=== PATIENT | female | born 1965 | race Caucasian/White ===

== ENCOUNTER 2018-12-03 23:54 | Emergency (ER) ==
[2018-12-04 00:02] VITALS: BP 136/97; TEMP 96.8; BMI 29.3
[2018-12-04] MEDS ORDERED: LIDOCAINE HCL 1% SDV SUBCUT STA (00:20)
--- NOTE | 2018-12-04 00:58 | DI ---
EXAM: Left hip two views HISTORY: Fall COMPARISON: None. FINDINGS: There is no acute fracture or dislocation. The hip joint is maintained. The surrounding soft tissues are unremarkable. IMPRESSION: No acute findings.
--- NOTE | 2018-12-04 01:05 | ED.PDOC ---
General ED Provider: Dr. COURTNEY BARON Chief Complaint: Fall Stated Complaint: Patient is a 53 year old female who states she fell on two steps landing on the left hip and hitting the floor with her left upper lip and causing a contusion on the left forearm. Denies any loss of conciousness. Able to bear weight and move left upper extremity. Did not loose her teeth. Time Seen by Physician: 01:03 Mode of Arrival: Walk-In Information Source: Patient Exam Limitations: No limitations Primary Care Provider: RYLAND MAST Nursing and Triage Documentation Reviewed and Agree: Yes Does patient meet sepsis criteria?: No System Inflammatory Response Syndrome: Not Applicable Sepsis Protocol: For patient's 13 years and over: Temp is 96.8 and below OR 101 and greater Pulse >90 BPM Resp >20/minute Acutely Altered Mental Status Are patient's symptoms suggestive of a new infection, such as: -Pneumonia -Skin, Soft Tissue -Endocarditis -UTI -Bone, Joint Infection -Implantable Device -Acute Abdominal Infection -Wound Infection -Meningitis -Blood Stream Catheter Infection -Unknown Review of Systems - Review Of Systems Constitutional: Reports: No symptoms Eyes: Reports: No symptoms Ears, Nose, Mouth, Throat: Reports: Mouth pain (Left upper lip laceration ) Respiratory: Reports: No symptoms Cardiac: Reports: No symptoms GI: Reports: No symptoms : Reports: No symptoms Musculoskeletal: Reports: Joint pain Skin: Reports: Bruising, Other (laceration ) Neurological: Reports: Anxiety Endocrine: Reports: No symptoms Hematologic/Lymphatic: Reports: No symptoms All Other Systems: Reviewed and Negative Past Medical History - Past Medical History Previously Healthy: Yes Endocrine: Reports: None Cardiovascular: Reports: Hypertension Respiratory: Reports: None Hematological: Reports: None Gastrointestinal: Reports: None Genitourinary: Reports: None Neuro/Psych: Reports: None Musculoskeletal: Reports: None Cancer: Reports: None Last Menstrual Period: 2009 ablation - Surgical History General Surgical History: Reports: Tubal ligation, , Cholecystectomy - Family History Family History: Reports: None - Social History Smoking Status: Current every day smoker, Light tobacco smoker Hx Substance Use: No Alcohol Screening: Occasionally - Immunizations Tetanus Shot up to Date: Yes Physical Exam - Physical Exam Appearance: Ill-appearing Ill-appearing: Mild Pain Distress: Moderate Eyes: [place], EOMI, Conjunctiva clear Neck: Supple Respiratory: Airway patent, Breath sounds clear, Breath sounds equal, Respirations nonlabored Cardiovascular: RRR, Pulses normal, No rub, No murmur GI/: Soft, Nontender, No masses, Bowel sounds normal, No Organomegaly Musculoskeletal: Normal strength Skin: Warm, Dry Neurological: Sensation intact, Motor intact, Cranial nerves intact, Alert, Oriented Psychiatric: Anxious Interpretation - Radiology Interpretation Radiology Interpretation By: Radiologist Radiology Results: Negative Exam Interpreted: Other (Left hip x ray ) Procedures - Laceration/Wound Repair left upper lip Wound Description: Irregular Wound Length (cm): 1 Wound Width: 0.5 Wound Depth: 0.5 Wound Explored: Clean Wound Irrigated: Yes Anesthesia: Lidocaine Suture Size and Type: 5.o Prolene and 5.0 gut Number of Sutures: 6 (simple , 3 prolene and 3 gut ) Sterile Dressing Applied?: No Progress: Tolerated well Critical Care Note - Critical Care Note Total Time (mins): 0 Course - Course Orders, Labs, Meds: Orders Category Date Time Status Hydromorphone HCl [Dilaudid 1 mg/ml Syringe] MEDS 12/04/18 01:18 Discontinued 1 mg IM ONCE STA Lidocaine HCl/Pf [Lidocaine HCl 1% Sdv] MEDS 12/04/18 00:20 Discontinued 5 ml SUBCUT ONCE STA HIP, LEFT 2 VIEWS Stat RADS 12/04/18 00:21 Completed Medications Discontinued Medications Generic Name Dose Route Start Last Admin Trade Name Layoq PRN Reason Stop Dose Admin Hydromorphone HCl 1 mg 12/04/18 01:18 12/04/18 01:32 Dilaudid 1 Mg/Ml Syringe IM 12/04/18 01:19 1 mg ONCE STA Administration Lidocaine HCl 5 ml 12/04/18 00:20 12/04/18 00:27 Lidocaine Hcl 1% Sdv SUBCUT 12/04/18 00:21 5 ml ONCE STA Administration Vital Signs: Temp Pulse Resp BP Pulse Ox 12/03/18 23:56 96.8 F L 78 20 136/97 H 97 Departure - Departure Time of Disposition: 01:10 Disposition: HOME SELF-CARE Discharge Problem: Contusion of left forearm, initial encounter Laceration of lip without complication Qualifiers: Encounter type: initial encounter Qualified Code(s): S01.511A - Laceration without foreign body of lip, initial encounter Hip strain Qualifiers: Encounter type: initial encounter Laterality: left Qualified Code(s): S76.012A - Strain of muscle, fascia and tendon of left hip, initial encounter Instructions: Laceration (ED), Contusion in Adults (ED) Condition: Stable Pt referred to PMD for follow-up: Yes IPMP verified?: No Additional Instructions: Have 3 sutures removed from the outer lip in 7-10 days 3 sutures front he inner aspect of the lip will naturally dissolve Take Tylenol or Motrin as needed for pain Prescriptions: Hydrocodone Bit/Acetaminophen [[place] 5-325] 1 each PO Q6HR PRN #15 tablet PRN Reason: severe pain Allergies/Adverse Reactions: Allergies No Known Allergies Allergy (Verified 12/04/18 00:02) Home Medications: Ambulatory Orders Cyanocobalamin/Folic Acid [Vitamin U34-Nqucj Acid Tablet] 1 each PO DAILY Hydrochlorothiazide 25 mg PO DAILY 07/10/15 Lisinopril [Zestril] 10 mg PO DAILY 07/10/15 Hydrocodone Bit/Acetaminophen [[place] 5-325] 1 each PO Q6HR PRN #15 tablet Disposition Discussed With: Patient
[2018-12-04] MEDS ORDERED: DILAUDID 1 MG/ML SYRINGE IM STA (01:18)
== END 2018-12-04 01:37 | disposition home or self-care (01) ==
LOC: ED 23:54
DX: K13.79 Other lesions of oral mucosa (principal); S01.511A Laceration without foreign body of lip, initial encounter; F41.9 Anxiety disorder, unspecified; M25.50 Pain in unspecified joint; S76.012A Strain of muscle, fascia and tendon of left hip, initial encounter; W10.8XXA Fall (on) (from) other stairs and steps, initial encounter; S50.12XA Contusion of left forearm, initial encounter
CPT/HCPCS: 96372; 99283